=== PATIENT | female | born 1975 | race Caucasian/White ===

== ENCOUNTER 2019-01-22 07:29 | Day surgery (SDC) | payer OTHER ==
[2019-01-22] MEDS ORDERED: KETOROLAC 30 MG/ML 1 ML VIAL IVP STA (07:47)
[2019-01-22] MEDS ORDERED: SODIUM CHLORIDE 0.9% 1,000 ML IV STA (07:49)
--- NOTE | 2019-01-22 08:18 | ED ---
General Adult HPI - General Chief complaint: ENT Stated complaint: Food in esophagus Time Seen by Provider: 01/22/19 07:34 Source: patient, EMS Mode of arrival: EMS Limitations: no limitations - History of Present Illness Initial comments: This 43-year-old white female presents with a complaint of an esophageal food bolus. She states that she was eating a beef roast last night around 7 PM when she feels as though something got stuck. She does have a foreign body sensation in her chest region. She states that she has mild pain in her lower chest r egion. She is unable to tolerate any fluids or secretions. She was seen at [facility] emergency department. She did receive some Reglan as well as some glucagon without any alleviation of symptoms. They apparently did not have a physician available for foreign body removal so transferred her to our facility. She denies any previous esophageal food bolus or any previous esophageal problems. There is no other complaints or modifying factors. - Related Data Home Medications Medication Instructions Recorded Confirmed Albuterol Inhaler [Ventolin Hfa 2 puff INHALATION RT-Q6H PRN 01/22/19 01/22/19 Inhaler] Ibuprofen 600 mg PO Q6H PRN 01/22/19 01/22/19 Loratadine 10 mg PO DAILY 01/22/19 01/22/19 Allergies Allergy/AdvReac Type Severity Reaction Status Date / Time codeine AdvReac Nausea & Verified 01/22/19 08:06 Vomiting Review of Systems ROS Statement: Those systems with pertinent positive or pertinent negative responses have been documented in the HPI. ROS Other: All systems not noted in ROS Statement are negative. Past Medical History Past Medical History: Asthma History of Any Multi-Drug Resistant Organisms: MRSA Date of last positivie culture/infection: RT hip (1986,) RT breast (2008) Past Surgical History: Cholecystectomy Additional Past Surgical History / Comment(s): RT hip, breast surgery Past Psychological History: No Psychological Hx Reported Smoking Status: Current every day smoker Past Alcohol Use History: None Reported Past Drug Use History: None Reported General Exam - General Exam Comments Initial Comments: GENERAL: The patient is well nourished and well hydrated. VITAL SIGNS: Heart rate, blood pressure, respiratory rate reviewed as recorded in nurse's notes. EYES: Pupils are round and reactive. Extraocular movements are intact. No conjunctival / lid redness or swelling. ENT: No external evidence of injury, swelling, or ecchymosis. Airway is patent. Throat is clear. NECK: Nontender. No swelling or evidence of injury. No subcutaneous emphysema. Trachea is midline. No thyroid mass. HEART: Regular rate and rhythm. Good peripheral pulses. LUNGS/CHEST: Breath sounds clear and equal bilaterally. No rales, rhonchi, or wheezes. No ecchymosis, subcutaneous emphysema, or tenderness. ABDOMEN: Abdomen soft without tenderness. No palpable masses or organomegaly. No peritoneal signs. No abdominal wall swelling or ecchymosis. EXTREMITIES: No extremity tenderness. Normal muscle tone and function. No thoracolumbar tenderness. NEUROLOGIC: Sensation is grossly intact. Cranial nerve exam reveals face is symmetrical, tongue is midline, speech is clear. SKIN: No abrasions or ecchymosis is noted. No induration or masses noted. PSYCHIATRIC: Alert and oriented. Appropriate behavior and judgment. Limitations: no limitations Course Vital Signs 01/22/19 01/22/19 07:33 11:39 Temperature 97.8 F 98.4 F Pulse Rate 100 87 Respiratory 18 18 Rate Blood Pressure 145/93 118/86 O2 Sat by Pulse 96 97 Oximetry Medical Decision Making - Medical Decision Making The patient was seen and examined. Records from [facility] are reviewed. A urine is completed. She is mildly hydrated. The case is discussed with Dr. Colvin at 8:21 AM. He will plan on removing the esophageal foreign body early this afternoon. The patient was eventually transferred her to the endoscopy suite for esophageal foreign body removal. Her stay in the ER was uneventful. - Lab Data Lab Results 01/22/19 Range/Units 07:53 Urine HCG, Qual Not Detected (Not Detectd) Disposition Clinical Impression: Esophageal foreign body Disposition: ADMITTED IP TO THIS HOSP Condition: Stable Is patient prescribed a controlled substance at d/c from ED?: No Time of Disposition: 12:15
[2019-01-22] MEDS ORDERED: IV FLUID CONTINUATION 1,000 ML IV ONE (12:00)
--- NOTE | 2019-01-22 12:59 | P.CONS ---
History of Present Illness - Reason for Consult Consult date: 01/22/19 Esophageal foreign body Requesting physician: Miguelito Parish - Chief Complaint Food stuck in her esophagus - History of Present Illness 43-year-old female with a known medical history of gastroesophageal reflux disease who presents to the hospital due to the sensation of an esophageal food bolus. She reports that she was eating roast beef at approximately 7 PM yesterd ay when she felt as if the food got stuck in her esophagus. She reports that after that time she had multiple episodes of vomiting and was unable to tolerate her secretions. The patient was given Reglan and glucagon with no improvement in her symptoms. She denies any prior episodes of similar symptoms. No prior EGD or colonoscopy reported. She does report a known history of GERD for which she is been prescribed Prilosec, however she reports she is noncompliant with medication. Review of Systems REVIEW OF SYSTEMS: CONSTITUTIONAL: Denies any fevers, chills, weight change or fatigue. CARDIOVASCULAR: Denies any chest pain, palpitations high or low blood pressures RESPIRATORY: Denies any shortness of breath, hemoptysis or cough. GENITOURINARY: No dysuria or hematuria. MUSCULOSKELETAL: No weakness reported. SKIN: Denies any new rashes or lesions, jaundice or pallor. PSYCHIATRIC: Denies any depression or anxiety. NEUROLOGY: Denies headache, denies any new focal deficits. EARS/NOSE/THROAT: No recent hearing change, congestion, nasal discharge or sore throat. EYES: No pain in eyes, discharge or change in vision. GASTROINTESTINAL: As per HPI. Past Medical History Past Medical History: Asthma History of Any Multi-Drug Resistant Organisms: MRSA Year Discovered:: RT hip (1986,) RT breast (2008) Past Surgical History: Cholecystectomy Additional Past Surgical History / Comment(s): RT hip, breast surgery Past Psychological History: No Psychological Hx Reported Smoking Status: Current every day smoker Past Alcohol Use History: None Reported Past Drug Use History: None Reported Additional History: Family history: Reviewed with the patient and noncon tributory to current medical presentation. Medications and Allergies Home Medications Medication Instructions Recorded Confirmed Type Albuterol Inhaler [Ventolin Hfa 2 puff INHALATION RT-Q6H PRN 01/22/19 01/22/19 History Inhaler] Ibuprofen 600 mg PO Q6H PRN 01/22/19 01/22/19 History Loratadine 10 mg PO DAILY 01/22/19 01/22/19 History Allergies Allergy/AdvReac Type Severity Reaction Status Date / Time codeine AdvReac Nausea & Verified 01/22/19 08:06 Vomiting Physical Exam Vitals: Vital Signs Temp Pulse Resp BP Pulse Ox 01/22/19 07:33 97.8 F 100 18 145/93 96 Intake and Output 01/21/19 01/22/19 01/22/19 22:59 06:59 14:59 Other: Weight 97.522 kg On physical examination, patient appears comfortable in no apparent distress. HEAD: Normocephalic, atraumatic. EYES: No scleral icterus. No conjunctival injection. MOUTH: No lesions, tongue midline. NECK: Trachea midline, no gross abnormalities. CHEST: Clear to auscultation with no wheezing or rhonchi appreciated. HEART: Regular rate and rhythm. ABDOMEN: Soft, obese. Bowel sounds are positive. No organomegaly. No guarding or rigidity. EXTREMITIES: No pedal edema. SKIN: No rashes, no jaundice. NEUROLOGIC: Alert and oriented x3. No focal deficits. Assessment and Plan (1) Esophageal foreign body Narrative/Plan: 43-year-old female with a known medical history of gastroesophageal reflux disease presents to the hospital due to the sensation of a foreign body in her esophagus. She reports that symptoms occurred after eating dinner at 7 PM last night with associated nausea vomiting and inability to tolerate her own secretions. No prior episodes of similar symptoms. She does have a history of reflux and has been prescribed omeprazole for which she is noncompliant. No prior EGD or colonoscopy reported. Status: Acute Code(s): T18.108A - UNSP FOREIGN BODY IN ESOPHAGUS CAUSING OTH INJURY, INIT SNOMED Code(s): 54048139 Plan: Supportive care Nothing by mouth Plan for emergent/urgent EGD for further evaluation Further recommendations pending findings of endoscopic evaluation Thank you for allowing us to participate in the care of this patient
[2019-01-22] MEDS ORDERED: PROPOFOL 10 MG/ML 20 ML VIAL IV ONE (13:20)
[2019-01-22] MEDS ORDERED: fentaNYL (PF) 50 MCG/ML 2 ML AMP ONE (13:20)
[2019-01-22] MEDS ORDERED: LIDOCAINE 1% INJ 10MG/ML (20 ML MDV) ONE (13:20)
[2019-01-22] MEDS ORDERED: MIDAZOLAM 2 MG/2 ML VIAL ONE (13:20)
[2019-01-22] MEDS ORDERED: IV FLUID CONTINUATION 400 ML IV ONE (13:53)
[2019-01-22 13:55] VITALS: RESP 18
--- NOTE | 2019-01-22 14:01 | P.PCN ---
Date of Procedure: 01/22/19 Description of Procedure: BRIEF HISTORY: 43-year-old female with a known medical history of gastroesophageal reflux disease who presents to the hospital due to the sensation of an esophageal food bolus. She reports that she was eating roast beef at approximately 7 PM yesterday when she felt as if the food got stuck in her esophagus. She reports that after that time she had multiple episodes of vomiting and was unable to tolerate her secretions. The patient was given Reglan and glucagon with no improvement in her symptoms. She denies any prior episodes of similar symptoms. No prior EGD or colonoscopy reported. She does report a known history of GERD for which she is been prescribed Prilosec, however she reports she is noncompliant with medication. PROCEDURE PERFORMED: Esophagogastroduodenoscopy with foreign body removal and biopsy. PREOPERATIVE DIAGNOSIS: Esophageal foreign body, GERD. ESTIMATED BLOOD LOSS: Minimal. IV sedation per anesthesia. PROCEDURE: After informed consent was obtained, the patient was brought into the endoscopy unit. IV sedation was administered by Anesthesia under continuous monitoring. Initially the Olympus GIF-190 video endoscope was inserted into the mouth. Esophagus intubated without any difficulty. It was gradually advanced into the esophagus where a large amount of food debris/esophageal foreign body was noted in the mid esophagus. The scope was used to apply gentle pressure to the edge of the foreign body and it was gently pushed into the stomach. Gastroscope was then advanced into the stomach and duodenum and carefully examined. The bulb and the second part of the duodenum appeared normal. The scope at this time was withdrawn to the stomach, adequately insufflated with air, and upon careful examination, mucosa of the antrum, body, cardia and the fundus appeared normal. Retroflexion in the stomach was significant for the foreign body being noted in the fundus of the stomach. The scope was then withdrawn into the esophagus. The GE junction was located at 40 cm from the incisors. The esophagus appeared normal, except for some mild inflammation in the mid esophagus suggestive of mild esophagitis secondary to trauma from the foreign body with biopsies taken. There were no erosions or ulcerations seen and the patient tolerated the procedure well. IMPRESSION: 1. Esophageal foreign body removed with gentle pressure, and advancement of the foreign body into the stomach. 2. Mild esophagitis of the midesophagus in the area of the foreign body, biopsied. RECOMMENDATIONS: The findings of this examination were discussed with the patient and her boyfriend. Okay for full liquid diet today, and okay to advance tomorrow. Would recommend patient resume taking PPI therapy as she has been prescribed. Await pathology from biopsies.
[2019-01-22 14:16] VITALS: BP 123/80; PULSE 95
[2019-02-04 11:23] VITALS: TEMP 98.3
== END 2019-01-22 14:45 | disposition home or self-care (01) ==
LOC: EC 07:29 → OR 11:55
PROVIDERS: ATTEND Internal Medicine
DX: T18.128A Food in esophagus causing other injury, initial encounter (principal); K21.0 Gastro-esophageal reflux disease with esophagitis; J45.909 Unspecified asthma, uncomplicated; F17.200 Nicotine dependence, unspecified, uncomplicated; Z88.5 Allergy status to narcotic agent; Z91.14 Patient's other noncompliance with medication regimen; Z86.14 Personal history of Methicillin resistant Staphylococcus aureus infection; Z90.49 Acquired absence of other specified parts of digestive tract; Z96.641 Presence of right artificial hip joint; Z79.899 Other long term (current) drug therapy; X58.XXXA Exposure to other specified factors, initial encounter
CPT/HCPCS: 43247; 43239; 81025 ×2; 88305; J2250; J2001; J3010; J1885; J2704